=== PATIENT | female | born 1980 | race Caucasian/White ===

== ENCOUNTER 2016-12-21 12:00 | Inpatient (IN) | payer OTHER ==
[~2016-12-21] VITALS: Ht 154.9 cm; Wt 45.4 kg
--- NOTE | ~2016-12-21 | PN ---
Unit #: [id number] #: [id number] Patient: SOUMYA ADLER [id number] [facility] [address] [place] [address] [id number] MR#: [id number] NAME: SOUMYA ADLER. ROOM: P116 Age: 36 Sex: F Admission Date: 12/21/2016 : 1980 Attending Physician: Aldo Blake M.D. Admitting Physician: Aldo Blake M.D. Primary Care Physician: [facility] PROGRESS NOTES DATE 12/27/2016 DISCUSSION Soumya says that she is "not sleeping at all," despite the use of chlorpromazine. Her mood is less irritable although some lability is still noted. She is alert and fully oriented today although mildly disheveled in appearance. She has not been coming out of her room much and not participating in groups and activities. She has vague suicidal ideation today. ASSESSMENT Bipolar depressed. PLAN We will change chlorpromazine to Ambien 10 mg at bedtime for insomnia and anticipate discharge in the near future. Dictated by... Aldo Blake M.D. KURT/praveen TD: 12/28/2016 11:42 JOB #: [id number] [facility] PROGRESS NOTES Page 1 of 1 X Aldo Blake MD PROGRESS NOTE
--- NOTE | ~2016-12-21 | HP ---
Unit #: [id number] #: [id number] Patient: SOUMYA ADLER [id number] [place] [address] [id number] MR#: [id number] NAME: SOUMYA ADLER. ROOM: P179 Age: 36 Sex: F Admission Date: 12/21/2016 : 1980 Attending Physician: Aldo Blake M.D. Admitting Physician: Aldo Blake M.D. Primary Care Physician: [facility] HISTORY AND PHYSICAL HISTORY OF PRESENT ILLNESS Soumya is a 36 year old admitted to [facility] because of her polysubstance abuse which includes alcohol and methamphetamine. PAST MEDICAL HISTORY 1. History of alcohol abuse. 2. History of illicit substance abuse to include methamphetamine. 3. History of withdrawal seizures. 4. Asthma. PAST SURGICAL HISTORY Nothing reported. ALLERGIES Flagyl. SOCIAL HISTORY She does not smoke. Drinks a fifth of vodka on a daily basis. Admits to illicit drug use to include IV methamphetamine. FAMILY HISTORY Medically noncontributory. REVIEW OF SYSTEMS CONSTITUTIONAL: No fever or chills. HEENT: Denies any sore throat, ear pain or runny nose. CARDIOVASCULAR: Denies chest pain, irregular heart rhythm or palpitations. CHEST: Denies shortness of breath or cough. No hemoptysis. GASTROINTESTINAL: Denies nausea, vomiting, diarrhea or chronic constipation. ENDOCRINE: Denies history of increased thirst or urination. No recent significant weight loss or gain. GENITOURINARY: Denies dysuria, frequency, or hematuria. SKIN: Denies any rashes. HEMATOLOGIC: Denies history of increased bleeding or bruising. MUSCULOSKELETAL: Denies any hot, swollen joints. No generalized muscle pain. NEUROLOGIC: Denies problems with vision or speech. No frequent, severe headaches. No numbness, tingling or weakness in any extremities. Denies loss of bladder or bowel control. CURRENT MEDICATIONS 1. Detox protocol. Unit #: [id number] #: [id number] Patient: SOUMYA ADLER 2. Latuda 60 mg q.a.m. PHYSICAL EXAMINATION GENERAL: Alert, well nourished. No apparent distress. VITAL SIGNS: Blood pressure 100/54, heart rate 80, respirations 16, and temperature 98.6. WEIGHT: 100. HEIGHT: 5 feet 1 inches. SKIN: Warm and dry without rash or lesion. HEENT: Normocephalic. TMs not viewed. Oral and nasal passages clear. Conjunctivae clear. PERRLA. EOMs intact. NECK: Supple without lymphadenopathy or thyromegaly. HEART: Regular rate and rhythm without murmur. LUNGS: Clear. ABDOMEN: Soft, nontender. : Not done. EXTREMITIES: No evidence of cyanosis, clubbing or edema. Moves all without focal deficit. NEUROLOGICAL: Grossly within normal limits. Cranial Nerves: II: Visual cardona are intact. III, IV AND : Extraocular movements are intact. Pupils are equal, round and reactive to light. V: Facial sensation is grossly normal. VII: Facial movements and expression are normal. VIII: Auditory acuity grossly intact. IX, X: Uvula is midline. Phonation is normal. XI: Patient shrugs shoulders and turns head normally. XII: Tongue protrudes in the midline. Sensory and Motor Function: Sensory and motor sensation is grossly normal. Motor: moves all extremities well. Coordination: Gait is normal. Deep Tendon Reflexes: Intact. IMPRESSION Psychiatric admission. RECOMMENDATIONS PSYCHIATRIC: Per psychiatrist. MEDICAL: 1. I see no contraindication to participate in this facility's activities. 2. Detox per protocol. MEDICAL PROGNOSIS Good. MEDICAL CONDITION Stable. Dictated by... Chana Kent PMariolaAMariola-Bernardo. for No Dodd/brittaney TD: 12/22/2016 12:11 JOB #: [id number] Unit #: [id number] #: [id number] Patient: SOUMYA ADLER HISTORY AND PHYSICAL Page 1 of 1 X Chana Kent HISTORY AND PHYSICAL
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
--- NOTE | ~2016-12-21 | PN ---
Unit #: [id number] #: [id number] Patient: SOUMYA ADLER [id number] [facility] [address] [place] [address] [id number] MR#: [id number] NAME: SOUMYA ADLER. ROOM: P116 Age: 36 Sex: F Admission Date: 12/21/2016 : 1980 Attending Physician: Aldo Blake M.D. Admitting Physician: Aldo Blake M.D. Primary Care Physician: [facility] PROGRESS NOTES DATE 12/26/2016 DISCUSSION Soumya is using Vistaril for anxiety with moderate success. She continues to be irritable and dysphoric with a congruent affect. She is alert and fully-oriented with no psychosis but ongoing SI. ASSESSMENT Bipolar depressed. PLAN Continue current treatment plan. Dictated by... No Lucas/praveen TD: 12/28/2016 08:55 JOB #: [id number] [facility] PROGRESS NOTES Page 1 of 1 X Aldo Blake MD X PROGRESS NOTE
--- NOTE | ~2016-12-21 | PN ---
Unit #: [id number] #: [id number] Patient: SOUMYA ADLER [id number] [facility] [address] [place] [address] [id number] I MR#: [id number] NAME: SOUMYA ADLER. ROOM: P116 Age: 36 Sex: F Admission Date: 12/21/2016 : 1980 Attending Physician: Aldo Blake M.D. Admitting Physician: Aldo Blake M.D. Primary Care Physician: [facility] PROGRESS NOTES DATE 12/23/2016 DISCUSSION Soumya continues to be irritable and quite angry in mood this morning. She is alert and fully oriented. Memory and concentration are fair and her thought processes are logical and nonpsychotic. She does continue to endorse both suicidal and homicidal ideation. ASSESSMENT Bipolar disorder, polysubstance dependence. PLAN Continue current treatment plan. Dictated by... No Lucas/yvonne TD: 12/25/2016 04:49 JOB #: [id number] [facility] PROGRESS NOTES Page 1 of 1 X Aldo Blake MD X PROGRESS NOTE
--- NOTE | ~2016-12-21 | PN ---
Unit #: [id number] #: [id number] Patient: SOUMYA ADLER [id number] [facility] [address] [place] [address] [id number] I MR#: [id number] NAME: SOUMYA ADLER ROOM: P116 Age: 36 Sex: F Admission Date: 12/21/2016 : 1980 Attending Physician: Aldo Blake M.D. Admitting Physician: Aldo Blake M.D. Primary Care Physician: [facility] PROGRESS NOTES DATE 12/24/2016 DISCUSSION [place]. Her mood continues to be irritable with an angry affect. She is alert and fully oriented. Her memory and concentration are fair and there is no evidence of psychosis. She does continue to report active withdrawal symptoms. ASSESSMENT Bipolar depressed, polysubstance dependence. PLAN Continue with current treatment plan and precautions. Dictated by... No Lucas/yvonne TD: 12/25/2016 04:48 JOB #: [id number] [facility] PROGRESS NOTES Page 1 of 1 X Aldo Blake MD PROGRESS NOTE
--- NOTE | ~2016-12-21 | PN ---
Unit #: [id number] #: [id number] Patient: SOUMYA ADLER [id number] [facility] [address] [place] [address] [id number] MR#: [id number] NAME: SOUMYA ADLER. ROOM: 16 Age: 36 Sex: F Admission Date: 12/21/2016 : 1980 Attending Physician: Aldo Blake M.D. Admitting Physician: Aldo Blake M.D. Primary Care Physician: [facility] PROGRESS NOTES DATE 12/25/2016 DISCUSSION Soumya had difficulty sleeping last night despite the use of Remeron stating it made her restless and irritable. She had previously reported an allergy to risperidone, but this turns out that she was now reporting allergy to Remeron. A dose of Benadryl was given with no sequela noted. She continues to have an irritable mood with a downcast affect and continues to assert suicidal ideation. ASSESSMENT Bipolar depressed. PLAN We will add chlorpromazine 100 mg at bedtime to assist with sleep and mood stability and continue Latuda. Dictated by... Aldo Blake M.D. MRH/bzg TD: 12/26/2016 08:29 JOB #: [id number] [facility] PROGRESS NOTES Page 1 of 1 X Aldo Blake MD PROGRESS NOTE
== END 2016-12-27 14:45 | disposition home or self-care (01) | DRG 897 ==
LOC: P1E 15:06 → P1S 15:06
PROC: HZ2ZZZZ Detoxification Services for Substance Abuse Treatment (ICD-10-PCS; principal; 2016-12-22)
DX: F10.20 Alcohol dependence, uncomplicated (principal); R45.851 Suicidal ideations; F31.9 Bipolar disorder, unspecified; F15.10 Other stimulant abuse, uncomplicated; R45.850 Homicidal ideations
CPT/HCPCS: J3030